=== PATIENT | female | born 1965 | race Caucasian/White ===

== ENCOUNTER 2016-08-10 22:24 | Observation (INO) | payer BC ==
[~2016-08-10] VITALS: Ht 157.5 cm; Wt 62.7 kg
[~2016-08-10 22:24] MED LIST: FIORINAL2 PO; MOTR200T PO; ULTR50TA PO; ZOFR4TAB3 SL
[2016-08-10 22:25] VITALS: BP 191/88; PULSE 88; RESP 18; TEMP 98.2; O2SAT 98
[2016-08-10 23:17] LABS: AUTOMATED NEUTROPHIL # 4.2 TH/MM3 (1.8-7.7); BASOPHIL % 0.4 % (0.0-2.0); EOSINOPHIL # 0.1 TH/MM3 (0-0.4); EOSINOPHIL % 1.2 % (0.0-4.0); HEMATOCRIT 40.1 % (35.0-46.0); HEMO FLAGS DIFF FINAL; LYMPH % 34.2 % (9.0-44.0); LYMPHOCYTE # 2.6 TH/MM3 (1.0-4.8); MEAN CORPUSCULAR HEMOGLOBIN 30.5 PG (27.0-34.0); MEAN CORPUSCULAR HGB CONC 34.7 % (32.0-36.0); MONO % 7.4 % (0.0-8.0); NEUT % 56.8 % (16.0-70.0); PLATELET COUNT 246 TH/MM3 (150-450); RED BLOOD COUNT 4.56 MIL/MM3 (4.00-5.30); RED CELL DISTRIBUTION WIDTH 13.9 % (11.6-17.2); WHITE BLOOD COUNT 7.5 TH/MM3 (4.0-11.0)
[2016-08-10 23:23] LABS: ANION GAP 7 MEQ/L (5-15); BICARBONATE 30.2 MEQ/L (21.0-32.0); BLOOD UREA NITROGEN 15 MG/DL (7-18); CHLORIDE 105 MEQ/L (98-107); GLOMERULAR FILTRATION RATE 96 ML/MIN (>89); POTASSIUM 3.6 MEQ/L (3.5-5.1); SODIUM (NA) 142 MEQ/L (136-145)
[2016-08-10 23:43] LABS: CREATINE KINASE 74 U/L (26-192)
[2016-08-10 23:47] VITALS: BP 175/99; PULSE 88; RESP 18; O2SAT 99
[2016-08-11 01:12] LABS: PROTHROMBIN TIME - PATIENT 10.5 SEC (9.8-11.6)
--- NOTE | 2016-08-11 01:20 | PD ---
HPI Chief Complaint: Chest Pain Time Seen by Provider: 23:29 Travel History International Travel<30 days: No Contact w/Intl Traveler<30days: No Traveled to known affect area: No History of Present Illness HPI 51-year-old female came to the emergency room with history of left-sided chest pain that has been on and off for past 1 week that almost continuous since yesterday. Patient points the pain to her left chest area but no radiation. Describes the pain to be pleuritic in nature. No history of cough, fever or chills. She seems uncomfortable. Patient is not a smoker. No past history of stent placements. She had a stress test done last year almost one year ago and was within normal limit. Patient has history of myocarditis. Vital signs were stable. She says she's been under a lot of stress lately from an ongoing divorce. Patient had a high blood pressure upon arrival which is slowly coming down. PFSH Past Medical History Narrative Medical List of her past medical history as reviewed from the nursing note. Cancer: No Thyroid Disease: Yes ?: Not Menopausal: Yes Ectopic : Yes Past Surgical History Abdominal Surgery: Yes (TUMORS REMOVED) Section: Yes (3) Cholecystectomy: Yes Tonsillectomy: Yes Other Surgery: Yes (THYROIDECTOMY) Social History Alcohol Use: No Tobacco Use: No Substance Use: No Allergies-Medications (Allergen,Severity, Reaction): Coded Allergies: Contrast Media (Verified Allergy, Intermediate, 09/09/15) Penicillin (Verified Allergy, Intermediate, 09/09/15) Rocephin (Verified Allergy, Intermediate, 09/09/15) Comments List of her allergies reviewed from the nursing note. Reported Meds & Prescriptions Reported Meds & Active Scripts Active Narrative Medication List of her home medications reviewed from the nursing note. Review of Systems Except as stated in HPI: all other systems reviewed are Neg Physical Exam Narrative GENERAL: Awake, alert, anxious, moderate distress SKIN: Warm and dry. HEAD: Atraumatic. Normocephalic. EYES: Pupils equal and round. No scleral icterus. No injection or drainage. ENT: No nasal bleeding or discharge. Mucous membranes pink and moist. NECK: Trachea midline. No JVD. CARDIOVASCULAR: Regular rate and rhythm. No murmur appreciated. RESPIRATORY: No accessory muscle use. Clear to auscultation. Breath sounds equal bilaterally. GASTROINTESTINAL: Abdomen soft, non-tender, nondistended. Hepatic and splenic margins not palpable. MUSCULOSKELETAL: No obvious deformities. No clubbing. No cyanosis. No edema. NEUROLOGICAL: Awake and alert. No obvious cranial nerve deficits. Motor grossly within normal limits. Normal speech. PSYCHIATRIC: Appropriate mood and affect; insight and judgment normal. Data Data Last Documented VS Vital Signs Date Time Temp Pulse Resp B/P Pulse Ox O2 Delivery O2 Flow Rate FiO2 08/10/16 23:47 88 18 175/99 99 Room Air 08/10/16 22:25 98.2 Orders Electrocardiogram (08/10/16 22:38) Complete Blood Count With Diff (08/10/16 22:38) Basic Metabolic Panel (Bmp) (08/10/16 22:38) Ckmb (Isoenzyme) Profile (08/10/16 22:38) Troponin I (08/10/16 22:38) Prothrombin Time / Inr (Pt) (08/11/16 00:24) D-Dimer (08/11/16 00:24) Admit Order (Ed Use Only) (08/11/16 01:16) Place In Observation (08/11/16 01:17) Activity Bed Rest With Brp (08/11/16 01:17) Vital Signs (Adult) Q4H (08/11/16:17) Cardiac Rhythm .As Directed (08/11/16:17) ^ Notify Dr: Other .PRN (08/11/16:17) ^ Notify Dr. Parameters (08/11/16:17) Resp Oxygen Nasal Cannula (08/11/16 ) Ckmb (Isoenzyme) Profile (08/11/16:17) Ckmb (Isoenzyme) Profile (08/11/16 04:17) Troponin I (08/11/16 01:17) Troponin I (08/11/16 04:17) Electrocardiogram (08/11/16:17) Electrocardiogram (08/11/16 04:17) ^ Obtain (08/11/16:17) Sodium Chloride 0.9% Flush (Ns Flush) (08/11/16 01:30) Sodium Chloride 0.9% Flush (Ns Flush) (08/11/16 09:00) Acetaminophen (Tylenol) (08/11/16 01:30) Ondansetron Inj (Zofran Inj) (08/11/16 01:30) Nitroglycerin Sl (Nitrostat Sl) (08/11/16 01:30) Accounting Tutor / Telemetry [email or web address] (08/11/16 01:17) Labs Laboratory Tests Test 08/10/16 08/11/16 22:48 00:35 White Blood Count 7.5 TH/MM3 Red Blood Count 4.56 MIL/MM3 Hemoglobin 13.9 GM/DL Hematocrit 40.1 % Mean Corpuscular Volume 88.0 FL Mean Corpuscular Hemoglobin 30.5 PG Mean Corpuscular Hemoglobin 34.7 % Concent Red Cell Distribution Width 13.9 % Platelet Count 246 TH/MM3 Mean Platelet Volume 9.0 FL Neutrophils (%) (Auto) 56.8 % Lymphocytes (%) (Auto) 34.2 % Monocytes (%) (Auto) 7.4 % Eosinophils (%) (Auto) 1.2 % Basophils (%) (Auto) 0.4 % Neutrophils # (Auto) 4.2 TH/MM3 Lymphocytes # (Auto) 2.6 TH/MM3 Monocytes # (Auto) 0.6 TH/MM3 Eosinophils # (Auto) 0.1 TH/MM3 Basophils # (Auto) 0.0 TH/MM3 CBC Comment DIFF FINAL Differential Comment Sodium Level 142 MEQ/L Potassium Level 3.6 MEQ/L Chloride Level 105 MEQ/L Carbon Dioxide Level 30.2 MEQ/L Anion Gap 7 MEQ/L Blood Urea Nitrogen 15 MG/DL Creatinine 0.65 MG/DL Estimat Glomerular Filtration 96 ML/MIN Rate Random Glucose 103 MG/DL Calcium Level 9.1 MG/DL Total Creatine Kinase 74 U/L Troponin I LESS THAN 0.02 NG/ML Prothrombin Time 10.5 SEC Prothromb Time International 1.0 RATIO Ratio D-Dimer Quantitative (PE/DVT) 0.48 MG/L [facility] Medical Decision Making Medical Screen Exam Complete: Yes Emergency Medical Condition: Yes Medical Record Reviewed: Yes Interpretation(s) Twelve-lead EKG was reviewed by me. Normal sinus rhythm, normal axis, nonspecific ST-T wave changes. Heart rate of 80 bpm. Differential Diagnosis ACS, PE, non-STEMI, nonspecific chest pain Narrative Course 1:22 AM blood test results of back and are within normal limit. I ordered a d- dimer which is within normal limit. Patient's risk factors are in the form off from hypertension, postmenopausal and I would prefer to keep her in the chest pain center to rule out ACS. I've discussed this with the patient and she has reluctantly agreed. Procedures EKG Prior to Arrival: Yes Diagnosis Primary Impression: Chest pain Qualified Code: R07.9 - Chest pain, unspecified type Admitting Information Admitting Physician Requests: Observation Adriane Garcia MD Aug 11, 2016 01:20 Adriane Garcia MD Aug 11, 2016 01:20
[2016-08-11] MEDS ORDERED: SODIUM CHLORIDE 0.9% FLUSH 5 ML FLUSH IVF PRN (01:30)
[2016-08-11] MEDS ORDERED: ACETAMINOPHEN 500 MG CPLT PO PRN (01:30)
[2016-08-11] MEDS ORDERED: NITROGLYCERIN 0.4 MG SL 25 TABS/BTL SL PRN (01:30)
[2016-08-11] MEDS ORDERED: ONDANSETRON HCL 4 MG/2 ML VIAL IV PRN (01:30)
[2016-08-11 02:52] LABS: CREATINE KINASE 72 U/L (26-192)
[2016-08-11 02:57] VITALS: O2SAT 98
[2016-08-11 04:00] VITALS: BP 128/68; PULSE 78; RESP 21; TEMP 98; O2SAT 98
[2016-08-11 05:15] LABS: CREATINE KINASE 67 U/L (26-192)
[2016-08-11 06:12] VITALS: PULSE 95
[2016-08-11 07:24] VITALS: BP 121/71; PULSE 62; RESP 18; TEMP 96.6; O2SAT 95
--- NOTE | 2016-08-11 07:53 | RADRPT ---
EXAM DATE/TIME: 08/11/2016 07:45 [facility] COMPARISON: CHEST SINGLE AP, July 18, 2015, 1:01. INDICATIONS : Chest pain. MEDICAL HISTORY : Lupus. Hypothyroidism. Fibromyalgia. SURGICAL HISTORY : Thyroidectomy. Cholecystectomy. section.Tonsillectomy, tumors removed from abdomen. ENCOUNTER: Subsequent ACUITY: 1 week PAIN SCORE: 8/10 LOCATION: Bilateral chest FINDINGS: A single view of the chest demonstrates the lungs to be symmetrically aerated without evidence of mas s, infiltrate or effusion. The cardiomediastinal contours are unremarkable. Osseous structures are intact. CONCLUSION: No acute disease. Eduardo Myles MD on August 11, 2016 at 7:51 Board Certified Radiologist. This report was verified electronically.
--- NOTE | 2016-08-11 08:10 | HHI.DCPOC ---
Discharge Care Plan Diagnosis: (1) Musculoskeletal chest pain Goals to Promote Your Health * To prevent worsening of your condition and complications * To maintain your health at the optimal level Directions to Meet Your Goals Take your medications as prescribed Follow your dietary instruction Follow activity as directed Keep your appointments as scheduled Take your immunizations and boosters as scheduled If your symptoms worsen call your PCP, if no PCP go to Urgent Care Center or Emergency Room Smoking is Dangerous to Your Health. Avoid second hand smoke Call the 24-hour hour crisis hotline for domestic abuse at Valerie Porter Aug 11, 2016 08:10
--- NOTE | 2016-08-11 08:59 | MH ---
cc: LENA MARTINI MD DATE OF ADMISSION: 08/11/2016 DATE OF 1965 CHIEF COMPLAINT Chest discomfort HISTORY OF PRESENT ILLNESS This is a 51-year-old patient who presents to the emergency for further evaluation of chest pain. Onset was one week ago characterized as hurts as though "I have a broken rib." Location is her left anterior chest. There is no radiation. Duration has been constant for the past week. It hurts to move. It also hurts to take a deep big deep breath. She had mild nausea initially when the pain started and some diaphoresis, however has none since. Pain does not seem to be exertional as it is constant. She has been taking Aleve which helps some, although pain does not go away completely. She follows with Dr. Burris and seen her five days ago. At that time, a rib series was completed and also an assessment and she was not found had a broken rib. Four weeks prior, she was performing some exercises and felt pain on her right side and was found to have a right rib fracture. PAST MEDICAL HISTORY 1. Rheumatoid arthritis 2. Fibromyalgia 3. Hypothyroidism 4. Kidney stones 5. Migraines PAST SURGICAL HISTORY Includes: 1. Four hernia repairs 2. Three C-sections 3. A partial thyroidectomy 4. Cholecystectomy FAMILY HISTORY Noncontributory for any early onset cardiovascular disease. SOCIAL HISTORY She is going through a divorce, states this is quite stressful for her. She is a remote smoker, quit over 20 years ago. Denies any alcohol or illegal drug use. No known hypertension, diabetes or hyperlipidemia. PAST CARDIAC TESTING She follows with Dr. Green and had an exercise stress test November of 2015 which was essentially unremarkable. ALLERGIES SHE DOES HAVE ALLERGIES TO CONTRAST MEDIA, PENICILLIN AND ROCEPHIN. MEDICATIONS She does not take any prescription medications, vitamins or supplements. REVIEW OF SYSTEMS GENERAL: She has been in her general state of health other than pain described as above. No recent illness, fevers, chills or change in appetite. HEENT: No headache. No dysphagia. CARDIOVASCULAR: As stated above. No palpitations intermittent leg pain or dizziness. RESPIRATORY: It hurts to take a deep breath. There is no shortness of breath, cough, wheeze, hemoptysis or recent upper respiratory infection. ABDOMEN: No nausea, vomiting, bowel changes such as diarrhea, constipation, pain or distension, blood in the stool or dark stool. : No dysuria or hematuria. EXTREMITIES: No lower leg edema or pain. MUSCULOSKELETAL: No change in ROM. Reports severe discomfort with moving with a pulling sensation on her left anterior chest wall. NEUROLOGIC: No difficulty with balance, motor or sensory deficits. No change in memory loss or consciousness, syncopal episodes. PSYCH: She reports she has some anxiety regarding her stressful divorce at this time. No depression. SKIN: No concerning lesions or rashes. PHYSICAL EXAM VITAL SIGNS: Temperature 98, pulse 78, respiratory 18, blood pressure 128/68 and pulse oximetry 98% on room air. GENERAL: She is alert, well-nourished, well-developed in no acute distress, mildly anxious female. HEAD: Normocephalic, atraumatic. EYES: Pupils are equal and round. Sclerae is clear. NECK: Supple. Trachea is midline. CARDIOVASCULAR: RRR without murmur, rub or gallop JVD. S1-S2. No S3, no S4. RESPIRATORY: Clear lungs throughout bilateral with no crackles, wheeze or rhonchi. She has a nonlabored, symmetrical chest rise. ABDOMEN: Soft, flat, nontender, and nondistended. No masses. Positive bowel tones. EXTREMITIES: Pulses +2 x4. There is no dependent edema. MUSCULOSKELETAL: Normal tone x4. She is tender in the left anterior chest wall upon palpation, actually even tender with auscultation of heart tones. There are no obvious deformities. NEUROLOGIC: CN II-XII is grossly intact. Motor strength 5/5. Gait is within normal limits. PSYCH: She is alert and oriented x3. She has a pleasant affect, mildly anxious, but she is appropriate to insight and judgment. SKIN: Normal turgor, normal texture. No rashes or lesions. She has a brisk cap refill. Her skin is warm and dry. LABORATORY CBC is unremarkable. Chemistry is unremarkable. Three sets of cardiac enzymes are unremarkable. Coags and D-dimer are also unremarkable. Chest x-ray read by the radiologist at the conclusion of no acute disease. Three EKG's show normal sinus rhythm with no ST or T segment changes and a normal axis. ASSESSMENT/PLAN 1. Chest pain. The patient has been admitted to the chest pain center, was ruled out with three sets of EKG's, cardiac enzymes and monitored overnight. She was seen and evaluated by Dr. Lena Martini. Her chest pain is clearly musculoskeletal in nature and she has been reassured of this. In hindsight of her having a recent rib series five days ago and a recent exercise stress test, and her assessment, we will discharge her and have encouraged her to follow with Dr. Burris as needed. She can continue to take her Aleve and has been encouraged to take this with food. She declines any prescription medication, muscle relaxants or home going Toradol. She states she will use a warm heating pad to the area as needed. 2. Hypertension. The patient was hypertensive upon arrival to the emergency room, however, blood pressure came down throughout the evening and high blood pressure is felt to be related to her pain that she initially had in the emergency room. She will follow with Dr. Burris accordingly. Dictated by LUDY Jackson MD KEVIN Tucker/HIMA /8:21 AM /8:32 AM
[2016-08-11] MEDS ORDERED: SODIUM CHLORIDE 0.9% FLUSH 5 ML FLUSH IVF SCH (09:00)
--- NOTE | 2016-08-11 15:02 | EKG ---
Date Performed: 08/11/2016 Time Performed: 02:09:18 PTAGE: 51 years EKG: Sinus rhythm BORDERLINE ECG PREVIOUS TRACING : 08/10/2016 22.44 Since previous tracing, no significant change noted DOCTOR: Brayan Bustos Interpretating Date/Time 08/11/2016 15:01:22
--- NOTE | 2016-08-11 15:03 | EKG ---
Date Performed: 08/11/2016 Time Performed: 05:24:36 PTAGE: 51 years EKG: Sinus rhythm NORMAL ECG PREVIOUS TRACING : 08/11/2016 02.09 Since previous tracing, no significant change noted DOCTOR: Brayan Bustos Interpretating Date/Time 08/11/2016 15:02:33
--- NOTE | 2016-08-11 15:03 | EKG ---
Date Performed: 08/10/2016 Time Performed: 22:44:35 PTAGE: 51 years EKG: Sinus rhythm NORMAL ECG PREVIOUS TRACING : 07/18/2015 06.35 Since previous tracing, no significant change noted DOCTOR: Brayan Bustos Interpretating Date/Time 08/11/2016 15:01:35
== END 2016-08-11 08:56 | disposition home or self-care (01) ==
LOC: NEPE 22:24 → NEDA 08-11 01:17 → NEPGCP 08-11 04:56
PROVIDERS: ADMIT Internal Medicine Cardiovascular Disease; ATTEND Internal Medicine Cardiovascular Disease
DX: R07.9 Chest pain, unspecified (principal); S22.31XA Fracture of one rib, right side, initial encounter for closed fracture; M79.7 Fibromyalgia; I10 Essential (primary) hypertension; E03.9 Hypothyroidism, unspecified; M06.9 Rheumatoid arthritis, unspecified; Z87.891 Personal history of nicotine dependence; Z87.442 Personal history of urinary calculi
CPT/HCPCS: 71010; 80048; 82550; 84484; 85025; 85379; 85610; 93005; 99285; G0378

== ENCOUNTER 2017-05-20 10:52 | Emergency (ER) | payer SELFPAY ==
[~2017-05-20] VITALS: Ht 157.5 cm; Wt 60.0 kg
[2017-05-20 10:54] VITALS: BP 132/85; PULSE 87; RESP 15; TEMP 97.9; O2SAT 98
--- NOTE | 2017-05-20 13:51 | PD ---
HPI . Medical clearance Chief Complaint: ENT Complaint Time Seen by Provider: 13:12 Travel History International Travel<30 days: No Contact w/Intl Traveler<30days: No Traveled to known affect area: No History of Present Illness HPI 52-year-old female presents emergency department for evaluation after she tests positive for strep last week in [place]. Patient states she lost her prescription and needs to be treated for strep throat. Patient denies any major medical history however she was recently diagnosed with breast cancer. Patient denies any fevers at home. Patient states she is feeling nauseous and vomited once yesterday. PFSH Past Medical History Heart Rhythm Problems: No Cancer: No Cardiac Catheterization: No Cardiovascular Problems: Yes (2016) High Cholesterol: No Congestive Heart Failure: No Diabetes: No Gastrointestinal Disorders: No Heparin Induced Thrombocytopen: No Hypertension: No Thyroid Disease: Yes ?: Not Menopausal: Yes Ectopic : Yes Past Surgical History Abdominal Surgery: Yes (TUMORS REMOVED) Section: Yes (3) Cholecystectomy: Yes Coronary Artery Bypass Graft: No Tonsillectomy: Yes Other Surgery: Yes (THYROIDECTOMY) Social History Alcohol Use: No Tobacco Use: No Substance Use: No Allergies-Medications (Allergen,Severity, Reaction): Coded Allergies: ceftriaxone (Unverified Allergy, Intermediate, 02/20/17) diatrizoate meglumine (Unverified Allergy, Intermediate, 02/20/17) gadobenic acid (Unverified Allergy, Intermediate, 02/20/17) gadodiamide (Unverified Allergy, Intermediate, 02/20/17) gadoteridol (Unverified Allergy, Intermediate, 02/20/17) iodixanol (Unverified Allergy, Intermediate, 02/20/17) iohexol (Unverified Allergy, Intermediate, 02/20/17) penicillin G (Unverified Allergy, Intermediate, 02/20/17) Reported Meds & Prescriptions Reported Meds & Active Scripts Active Review of Systems Except as stated in HPI: all other systems reviewed are Neg Physical Exam Narrative GENERAL: Well-nourished, well-developed 52-year-old female patient in no acute distress. Nontoxic appearing. SKIN: Focused skin assessment warm/dry. HEAD: Normocephalic. Atraumatic. EYES: No scleral icterus. No injection or drainage. THROAT: No pharyngeal injection, exudates, or tonsillar hypertrophy. Airway is patent. EARS: Bilateral pinnae and external canals appear within normal limits. Bilateral tympanic membranes without erythema, dullness or perforation. NECK: Supple, trachea midline. No JVD or lymphadenopathy. CARDIOVASCULAR: Regular rate and rhythm without murmurs, gallops, or rubs. RESPIRATORY: Breath sounds equal bilaterally. No accessory muscle use. GASTROINTESTINAL: Abdomen soft, non-tender, nondistended. MUSCULOSKELETAL: No cyanosis, or edema. Data Data Last Documented VS Vital Signs Date Time Temp Pulse Resp B/P (MAP) Pulse Ox O2 Delivery O2 Flow Rate FiO2 05/20/17 12:14 76 18 05/20/17 10:54 97.9 132/85 (101) 98 Orders Orders Ondansetron Inj (Zofran Inj) (05/20/17 14:00) Ondansetron Inj (Zofran Inj) (05/20/17 14:00) Ed Discharge Order (05/20/17 13:58) Group A Rapid Strep Screen (05/20/17 14:04) Strep Culture (Group A) (05/20/17 14:11) MDM Medical Decision Making Medical Screen Exam Complete: Yes Emergency Medical Condition: Yes Interpretation(s) Afebrile, no tachycardia Differential Diagnosis Differential diagnoses include but not limited to URI, viral syndrome, pharyngitis, medical clearance Narrative Course 52-year-old female presents emergency department stating she wants to be treated for strep throat after she tested positive last week in [place]. Patient states she lost her prescription for strep throat treatment. Patient's physical exam is completely benign and unremarkable. Patient is afebrile with the tachycardia at our facility. Patient is well-appearing and conversing in no acute distress. Patient states she is feeling nauseous and vomited once yesterday however she is not vomited today. Patient denies any chest pain, shortness breath, cough, chills. Patient case discussed with my attended MD, Dr. Orr and decided that we will treat the patient based on their clinical presentation and physical exam. Patient unable to obtain records from [place] saying she just went to some urgent care she was passing through. Patient will be given an IM injection for Zofran for the nausea and discharged home with instructions to follow-up with her primary care. Upon discharge patient was very upset that she wasn't getting treated for strep throat and demanded a throat culture. Throat culture ordered and negative for strep. Original plan in place. Patient refuses Zofran injection. Diagnosis Primary Impression: Nausea Referrals: Primary Care Physician Patient Instructions: Acute Nausea and Vomiting (DC), General Instructions Additional Instructions: Please return to emergency department if your symptoms return or worsen. Follow up with your primary care provider. Supportive care, stay hydrated, get enough rest, diet as tolerated. May take ibuprofen or Tylenol as needed for pain or fevers. Disposition: 01 DISCHARGE HOME Condition: Stable TyreseSarahmanan Colvin [facility] May 20, 2017 13:50
[2017-05-20] MEDS ORDERED: ONDANSETRON HCL 4 MG/2 ML VIAL IM ONE (14:00)
[2017-05-20] MEDS ORDERED: ONDANSETRON HCL 4 MG/2 ML VIAL IV PUSH ONE (14:00)
== END 2017-05-20 15:08 | disposition home or self-care (01) ==
LOC: NEPD 10:52
DX: R11.0 Nausea (principal)
CPT/HCPCS: 87081; 87880; 99283